=== PATIENT | male | born 1990 | race American Indian/Alaskan Native ===

== ENCOUNTER 2016-09-28 19:18 | Emergency (ER) | payer OTHER ==
[2016-09-28 20:25] LABS: Hematocrit 41.5 % (35.5-45.6); Hemoglobin 13.9 gm/dl (11.8-15.2); Mean Corpuscular HGB Conc 33 % (32-34); Mean Corpuscular Hemoglobin 28 pg (28-32); Mean Corpuscular Volume 82 fl (84-94); Platelet Count 190 K/mm3 (140-440); Red Blood Count 5.04 M/mm3 (3.65-5.03); Red Cell Distribution Width 13.6 % (13.2-15.2); White Blood Count 15.5 K/mm3 (4.5-11.0)
[2016-09-28 20:35] LABS: Anion Gap 17 mmol/L; BUN/Creatinine Ratio 12.72; Blood Urea Nitrogen 14 mg/dL (9-20); Calcium 9.1 mg/dL (8.4-10.2); Carbon Dioxide 26 mmol/L (22-30); Chloride 102.6 mmol/L (98-107); Glucose 101 mg/dL (75-100); Potassium 3.6 mmol/L (3.6-5.0); Sodium 142 mmol/L (137-145)
[2016-09-28] MEDS ORDERED: TYLENOL PO ONE (21:19)
[2016-09-28] MEDS ORDERED: NORCO 5/325 PO ONE (21:24)
--- NOTE | 2016-09-28 21:26 | Emergency Department Report ---
HPI - General Chief Complaint: Fever Time Seen by Provider: 09/28/16 21:17 - HPI HPI: This is a 26-year-old Afro[place] male presents to the emergency department from home with complaint of a fever, headache and pain in the neck/shoulder/ back has been going on since he finished work earlier today. 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 The pain starts around the eyes and goes back towards the generalized head. He denies any vision change, slurred speech, nausea, vomiting , confusion or any neurological deficits. He does have some photophobia. No recent travel or sick contacts at home. He denies any past medical history. He does not have a primary care physician. He tried some Advil for his symptoms around 5 PM without much relief. ED Past Medical Hx - Past Medical History Previous Medical History?: No - Surgical History Additional Surgical History: Left wrist surgery. - Social History Smoking Status: Never Smoker Substance Use Type: None - Medications Home Medications: Home Medications Medication Instructions Recorded Confirmed Last Taken Type Ibuprofen [Motrin 800 MG tab] 800 mg PO Q8HR PRN #20 tablet 09/29/16 Unknown Rx ED Review of Systems ROS: Stated complaint: HEADAHE/FEVER Other details as noted in HPI Comment: All other systems reviewed and negative Constitutional: fever. denies: diaphoresis Eyes: other (photophobia). denies: vision change ENT: denies: ear pain, throat pain Respiratory: denies: cough, shortness of breath, wheezing Cardiovascular: denies: chest pain, palpitations Gastrointestinal: denies: abdominal pain, nausea, diarrhea Genitourinary: denies: urgency, dysuria Musculoskeletal: myalgia. denies: joint swelling Skin: denies: rash, lesions Neurological: headache. denies: numbness, paresthesias, confusion Physical Exam - Physical Exam Vital Signs: Vital Signs 09/28/16 19:55 Temperature 101.6 F H Pulse Rate 100 H Respiratory 16 Rate Blood Pressure 122/77 Blood Pressure 122/77 [Left] O2 Sat by Pulse 97 Oximetry Physical Exam: GENERAL: The patient is well-developed well-nourished. HEENT: Normocephalic. Atraumatic. Extraocular motions are intact. Patient has moist mucous membranes. Pupils equal reactive to light bilaterally. No nystagmus. Patient has some photophobia. NECK: Supple. Trachea is midline. Full range of motion. No midline tenderness to palpation, step-off or deformity. There is bilateral paraspinal tenderness and radiates down towards the trapezius muscle. CHEST/LUNGS: Clear to auscultation. There is no respiratory distress noted. HEART/CARDIOVASCULAR: Regular. There is no tachycardia. There is no gallop rub or murmur. ABDOMEN: Abdomen is soft, nontender. Patient has normal bowel sounds. There is no abdominal distention. SKIN: Skin is hot but dry. NEURO: The patient is awake, alert, and oriented. The patient is cooperative. The patient has no focal neurologic deficits. The patient has normal speech. Cranial nerves II through XII grossly intact. MUSCULOSKELETAL: There is no tenderness or deformity. There is no limitation range of motion. There is no evidence of acute injury. ED Course Vital Signs 09/28/16 19:55 Temperature 101.6 F H Pulse Rate 100 H Respiratory 16 Rate Blood Pressure 122/77 Blood Pressure 122/77 [Left] O2 Sat by Pulse 97 Oximetry ED Medical Decision Making - Lab Data Result diagrams: 09/28/16 20:06 09/28/16 20:06 - Radiology Data Radiology results: report reviewed CT of the head does not show any acute process including no hemorrhage, mass, shift, diffuse edema or skull fracture. - Medical Decision Making 26 yo male presents with headache that started earlier this afternoon and a fever that reached a MAXIMUM TEMPERATURE of 101 here in the ER. Even before he was given Tylenol or [place] his fever seemed to resolve and his vital signs improved. At no point did the patient have any signs of focal, motor or sensory deficits and his cranial nerves appear intact. While he has some discomfort that goes towards the neck and shoulders, it appears more consistent with body aches and/or a trapezius muscle spasm, then it does appear to be meningitic signs. A CT of the head was done without contrast that does not show any bleed, shift, mass or any acute process. His labs does show a leukocytosis but there is no electrolyte abnormalities, renal insufficiency or glucose abnormalities. He was reevaluated multiple times for multiple hours and says he is feeling much improved. He no longer has a sensitivity to light. He was seen and bit her in the emergency department and appears stable. He is well-appearing. He'll be discharged home with some ibuprofen and referrals for primary care. He will return to the ER with any worsening of his symptoms or any acute distress. - Differential Diagnosis viral syndrome, tension headache, migraine, URI Critical Care Time: No Critical care attestation.: If time is entered above; I have spent that time in minutes in the direct care of this critically ill patient, excluding procedure time. ED Disposition Clinical Impression: Body aches Fever Qualifiers: Fever type: unspecified Qualified Code(s): R50.9 - Fever, unspecified Headache Qualifiers: Headache type: unspecified Headache chronicity pattern: acute headache Intractability: not intractable Qualified Code(s): R51 - Headache Disposition: DC- TO HOME OR SELFCARE Is pt being admited?: No Condition: Stable Instructions: Fever in Adults (ED), Acute Headache (ED) Additional Instructions: Please follow-up with a primary care physician in the next few days. Return to the emergency department with any worsening of your symptoms or any acute distress. Prescriptions: Ibuprofen [Motrin 800 MG tab] 800 mg PO Q8HR PRN #20 tablet PRN Reason: Pain Referrals: PRIMARY MD TAMARA [Primary Care Provider] - 3-5 Days PHYLLIS HERNANDEZ MD [Staff Physician] - 3-5 Days [facility] [Outside] - 3-5 Days Forms: Work/School Release Form(ED) Time of Disposition: 00:19
--- NOTE | 2016-09-28 22:04 | Cat Scan Report ---
FINAL REPORT PROCEDURE: CT HEAD/BRAIN WO CON TECHNIQUE: Computerized tomography of the head was performed without contrast material. HISTORY: Headache COMPARISON: No prior studies are available for comparison. FINDINGS: Skull and scalp: Normal. Paranasal sinuses: Normal. Ventricles and subarachnoid spaces: Normal. Cerebrum: No evidence of hemorrhage, acute infarction or mass . Cerebellum and brainstem: No evidence of hemorrhage, acute infarction or mass. Vasculature: Normal. Comments: None. IMPRESSION: Normal Examination
[2016-09-28 22:47] LABS: Basophils % (Manual) 0 % (0.0-1.8); Blastocytes % (Manual) 0 %; Eosinophils % (Manual) 0 % (0.0-4.3)
[2016-09-28 22:48] LABS: Diff Status Complete; Elliptocytes 1+; Large Platelets Few
[2016-09-28 23:25] LABS: Bilirubin,Urine NEG (Negative); Blood,Urine NEG (Negative); Ketones,Urine 20 mg/dL (Negative); Leukocyte Esterase,Urine TR (Negative); Mucus,Urine 3+ /HPF; Nitrite,Urine NEG (Negative); Urobilinogen,Urine < 2.0 mg/dL (<2.0)
[2016-09-29 00:31] VITALS: BP 109/45
== END 2016-09-29 00:34 | disposition home or self-care (01) ==
LOC: ED 19:18
DX: R50.9 Fever, unspecified (principal); R51 Headache; M54.2 Cervicalgia
CPT/HCPCS: 36415; 70450; 80048; 81001; 85007; 85025; 99284